=== PATIENT | female | born 1945 | race Caucasian/White ===

== ENCOUNTER 2016-12-06 04:37 | Observation (INO) | payer OTHER ==
[~2016-12-06] VITALS: Ht 157.5 cm; Wt 80.5 kg
[~2016-12-06 04:37] MED LIST: ADVAIR 250/501 DISK IH; ASCORBIC ACID500 M3 PO; ASPIR 8181 M1 PO; COZAAR25 MG PO; DUONEB 2.5-0.5 M3 ML IH; FIBER GUMMIES1 EACH PO; FLONASE16 G1 BOTH NARES; FOLIC ACID1 MG PO; INSULIN PUMP SCCONT; KEFLEX500 MG PO; LANTUS 10100 UNITS/ SC; LANTUS 3 M100 UNITS1 SC; LEVEMIR FL100 UNIT/1 SC; LEXAPRO10 MG PO; LOPRESSOR25 MG PO; LOSARTAN POTASS25 MG PO; LOSARTAN POTASS50 MG PO; METFORMIN HCL500 M1 PO; METFORMIN HCL500 MG PO; NORCO 5/3251 TABLET PO; NOVOLOG PE100 UNITS/ SC; NYSTATIN-TRIAMC15 GM TP; OMEPRAZOLE20 M2 PO; OMEPRAZOLE20 MG PO; PANTOPRAZOLE SO40 MG PO; PRAMIPEXOLE DI0.5 MG PO; PRAVASTATIN SOD20 MG PO; PROTONIX40 MG PO; SANTYL30 GM TP; SENNA-TIME S T1 EACH PO; THERAGRAN1 TABLET PO; TOPROL XL25 MG PO; WOMEN'S DAILY1 EAC4 PO; ZOFRAN4 MG PO
[2016-12-06 06:12] LABS: HEMATOCRIT 35.8 % (36.0-46.0); MCHC 32.4 G/DL (30.0-36.0); MCV 95.7 FL (83-99); MEAN PLAT.VOLUME 11.4 uM^3 (9.5-12.4); PLATELET COUNT 363 K/uL (156-360); RBC DIS.WIDTH-CV 12.1 % (11.8-14.6); RBC DIS.WIDTH-SD 42.4 % (39-53); RED BLOOD COUNT 3.74 M/uL (3.80-5.20); WHITE BLOOD COUNT 9.1 K/uL (4.1-10.2)
[2016-12-06 06:16] LABS: CHLORIDE 104 mEq/L (99-109); POTASSIUM 4.8 mEq/L (3.7-5.4); SODIUM 138 mEq/L (136-147)
[2016-12-06 06:18] LABS: GLUCOSE 305 mg/dL (70-99)
[2016-12-06 06:19] LABS: ANION GAP 12 MEQ/L (2-14)
[2016-12-06 06:20] LABS: TOTAL BILIRUBIN 0.4 mg/dL (0.0-1.0)
[2016-12-06 06:22] LABS: ALKALINE PHOSPHATASE 71 IU/L (3-129); D-DIMER ELISA 0.57 mg/L FEU (< 0.57); GFR ESTIMATE (CALCULATED) 47 mL/min/
[2016-12-06 06:23] LABS: UREA NITROGEN (BUN) 26 mg/dL (9-23)
[2016-12-06 06:25] LABS: LIPASE 5 U/L (1.0-51.0)
[2016-12-06 06:31] LABS: TROP-I INTERPRETATION NEGATIVE; TROPONIN-I < 0.01 ng/mL (0.0-0.30)
[2016-12-06 09:53] VITALS: BP 179/74
[2016-12-06 11:59] LABS: POINT-OF-CARE METER ID UU13113831
[2016-12-06 12:12] VITALS: BP 161/68
[2016-12-06 12:21] LABS: TROP-I INTERPRETATION NEGATIVE; TROPONIN-I < 0.01 ng/mL (0.0-0.30)
[2016-12-06 17:37] LABS: POINT-OF-CARE METER ID UU14162513
[2016-12-06 19:08] LABS: ALKALINE PHOSPHATASE 66 IU/L (3-129); DIRECT BILIRUBIN 0.1 mg/dL (0.0-0.3); TOTAL BILIRUBIN 0.4 MG/DL (0.0-1.0)
[2016-12-06 19:32] LABS: TROP-I INTERPRETATION NEGATIVE; TROPONIN-I 0.02 ng/mL (0.0-0.30)
[2016-12-06 20:27] VITALS: BP 150/64
[2016-12-06] MEDS ORDERED: NOVOLOG 10100 UNITS/ MC (20:44)
[2016-12-06] MEDS ORDERED: VITAMIN D31000 UNI2 PO (20:53)
[2016-12-06] MEDS ORDERED: CYANOCOBALAM1000 MCG PO (20:54)
[2016-12-06] MEDS ORDERED: TYLENOL EXTRA500 MG PO (20:57)
[2016-12-06] MEDS ORDERED: OXYBUTYNIN CHLO10 MG PO (20:58)
[2016-12-06 21:55] LABS: POINT-OF-CARE METER ID UU14162513
[2016-12-07 00:30] VITALS: BP 146/64
[2016-12-07 03:43] VITALS: BP 153/70
[2016-12-07 07:46] LABS: POINT-OF-CARE METER ID UU14162513
[2016-12-07 08:49] VITALS: BP 134/78
[2016-12-07] MEDS ORDERED: POLYETHYLENE GL17 GM PO (10:17)
[2016-12-07] MEDS ORDERED: ADVAIR HFA120 INHALA IH (10:17)
[2016-12-07 12:10] VITALS: BP 148/68
[2016-12-07 12:52] LABS: POINT-OF-CARE METER ID UU14162513; POINT-OF-CARE USER ID PUTHJD81
== END 2016-12-07 16:56 | disposition home or self-care (01) ==
LOC: EME 04:37 → EDOF 08:33 → 5WEST 09:32
PROVIDERS: Emergency Medicine; Hospitalist; Internal Medicine
DX: R07.9 Chest pain, unspecified (principal); R10.13 Epigastric pain; I25.10 Atherosclerotic heart disease of native coronary artery without angina pectoris; I10 Essential (primary) hypertension; E11.65 Type 2 diabetes mellitus with hyperglycemia; D64.9 Anemia, unspecified; F03.90 Unspecified dementia, unspecified severity, without behavioral disturbance, psychotic disturbance, mood disturbance, and anxiety; E66.9 Obesity, unspecified; Z68.32 Body mass index [BMI] 32.0-32.9, adult; I25.2 Old myocardial infarction; Z79.4 Long term (current) use of insulin
CPT/HCPCS: 71020; 74000; 80053; 80076; 82948; 83690; 84484; 85027; 85379; 93005; 94640; 94640 76; 99281; 99285; G0378; J1650; J1815; J7030

== ENCOUNTER 2017-01-02 14:43 | Emergency (ER) | payer OTHER ==
[~2017-01-02] VITALS: Ht 170.2 cm; Wt 73.6 kg
[~2017-01-02 14:43] MED LIST changes: +ADVAIR HFA120 INHALA IH; +CYANOCOBALAM1000 MCG PO; +NOVOLOG 10100 UNITS/ MC; +OXYBUTYNIN CHLO10 MG PO; +POLYETHYLENE GL17 GM PO; +TYLENOL EXTRA500 MG PO; +VITAMIN D31000 UNI2 PO
[2017-01-02 19:31] VITALS: BP 154/49
== END 2017-01-02 19:33 | disposition home or self-care (01) ==
LOC: EME 14:43
DX: H43.812 Vitreous degeneration, left eye (principal); J45.909 Unspecified asthma, uncomplicated; E11.9 Type 2 diabetes mellitus without complications; I10 Essential (primary) hypertension; I25.2 Old myocardial infarction; K21.9 Gastro-esophageal reflux disease without esophagitis; F03.90 Unspecified dementia, unspecified severity, without behavioral disturbance, psychotic disturbance, mood disturbance, and anxiety; G20 Parkinson's disease; Z96.41 Presence of insulin pump (external) (internal); Z79.4 Long term (current) use of insulin; Z79.82 Long term (current) use of aspirin; Z87.891 Personal history of nicotine dependence
CPT/HCPCS: 99281; 99284

== ENCOUNTER 2017-03-04 15:12 | Inpatient (IN) | payer OTHER ==
[~2017-03-04] VITALS: Ht 167.6 cm; Wt 65.9 kg
[~2017-03-04 15:12] MED LIST changes: +DONEPEZIL HCL10 MG PO; +HUMALOG100 UNIT/2 SC; +ONDANSETRON HCL4 MG PO
[2017-03-04 15:57] LABS: BASOPHIL COUNT 0.1 K/uL (0-0.1); EOSINOPHIL (%) 0.4 % (0-5); HEMATOCRIT 39.3 % (36.0-46.0); IMMATURE GRANULOCYTE (%) 0.4 % (0.0-0.7); INSTRUMENT ABS NEUTROPHIL CT 4.7 K/uL; LYMPHOCYTE COUNT 1.9 K/uL (1.0-2.8); MCHC 32.8 G/DL (30.0-36.0); MCV 97.5 FL (83-99); MEAN PLAT.VOLUME 11.3 uM^3 (9.5-12.4); MONOCYTE COUNT 0.5 K/uL (0-0.8); NEUTROPHIL (%) 64.7 % (45-76); NEUTROPHIL COUNT 4.7 K/uL (1.8-6.4); PLATELET COUNT 287 K/uL (156-360); RBC DIS.WIDTH-CV 12.4 % (11.8-14.6); RBC DIS.WIDTH-SD 44.7 % (39-53); RED BLOOD COUNT 4.03 M/uL (3.80-5.20); WHITE BLOOD COUNT 7.2 K/uL (4.1-10.2)
[2017-03-04 16:18] LABS: TROP-I INTERPRETATION NEGATIVE; TROPONIN-I 0.02 ng/mL (0.0-0.30)
[2017-03-04 16:58] LABS: ANION GAP 20 MEQ/L (2-14); CHLORIDE 97 MEQ/L (99-109); POTASSIUM 4.3 MEQ/L (3.7-5.4); SAMPLE HEMOLYSIS CHECK 0; SAMPLE ICTERIC CHECK 0; SAMPLE LIPEMIA CHECK 0; SODIUM 134 MEQ/L (136-147); TOTAL BILIRUBIN 0.8 MG/DL (0.0-1.0)
[2017-03-04 17:07] LABS: ALKALINE PHOSPHATASE 58 IU/L (3-129); GFR ESTIMATE (CALCULATED) 47 mL/min/; GLUCOSE 592 mg/dL (70-99); UREA NITROGEN (BUN) 30 mg/dL (9-23)
[2017-03-04 18:05] LABS: ADD MIUA? NO; BILIRUBIN NEGATIVE; BLOOD NEGATIVE; COLOR YELLOW ((YELLOW)); GLUCOSE (STRIP) >=500; KETONES 20; LEUKOCYTES NEGATIVE; NITRITE NEGATIVE; PROTEIN (STRIP) NEGATIVE; SPECIFIC GRAVITY 1.027 (1.000-1.030); UCUL ADDED? NO; UROBILINOGEN 0.2 MG/DL (0.2-1.0)
[2017-03-04 18:53] LABS: POINT-OF-CARE METER ID UU14100415
[2017-03-04 19:58] LABS: CHLORIDE 110 mEq/L (99-109)
[2017-03-04 20:00] LABS: SODIUM 141 mEq/L (136-147)
[2017-03-04 20:01] LABS: ANION GAP 12 MEQ/L (2-14); GLUCOSE 224 mg/dL (70-99)
[2017-03-04 20:04] LABS: GFR ESTIMATE (CALCULATED) 47 mL/min/
[2017-03-04 20:05] LABS: UREA NITROGEN (BUN) 27 mg/dL (9-23)
[2017-03-05 08:29] LABS: POINT-OF-CARE METER ID UU14100415
[2017-03-05 15:01] LABS: POINT-OF-CARE METER ID UU14100415
[2017-03-05 17:34] LABS: POINT-OF-CARE METER ID UU14100415
[2017-03-05] MEDS ORDERED: ARICEPT10 MG PO (18:52)
[2017-03-05 20:19] VITALS: BP 110/53
[2017-03-05 20:23] VITALS: BP 110/53
[2017-03-06 06:12] LABS: POINT-OF-CARE METER ID UU13113830
[2017-03-06 07:46] VITALS: BP 128/65
[2017-03-06 12:29] LABS: POINT-OF-CARE METER ID UU13113830
[2017-03-06 15:28] VITALS: BP 132/61
[2017-03-06 17:44] LABS: POINT-OF-CARE METER ID UU13113830
[2017-03-06 20:59] LABS: POINT-OF-CARE METER ID UU13113830; POINT-OF-CARE USER ID BHSSMG
[2017-03-07 06:10] LABS: POINT-OF-CARE METER ID UU13113830; POINT-OF-CARE USER ID BHSMEW
[2017-03-07 07:59] VITALS: BP 139/65
[2017-03-07 15:17] VITALS: BP 120/78
[2017-03-07 17:06] LABS: POINT-OF-CARE METER ID UU13113830
[2017-03-07 20:44] LABS: POINT-OF-CARE METER ID UU13113830; POINT-OF-CARE USER ID BHSSMG
[2017-03-08 06:13] LABS: POINT-OF-CARE METER ID UU13113830; POINT-OF-CARE USER ID BHSMEW
[2017-03-08 07:41] VITALS: BP 198/77
[2017-03-08 07:53] VITALS: BP 148/65
[2017-03-08 08:27] LABS: ANION GAP 9 MEQ/L (2-14); CHLORIDE 104 MEQ/L (99-109); GFR ESTIMATE (CALCULATED) > 59 mL/min/; GLUCOSE 209 mg/dL (70-99); POTASSIUM 3.9 MEQ/L (3.7-5.4); SAMPLE HEMOLYSIS CHECK 0; SAMPLE ICTERIC CHECK 0; SAMPLE LIPEMIA CHECK 0; SODIUM 138 MEQ/L (136-147); UREA NITROGEN (BUN) 16 mg/dL (9-23)
[2017-03-08 15:30] VITALS: BP 127/59
[2017-03-08 17:19] LABS: POINT-OF-CARE METER ID UU13113830
[2017-03-08 20:50] LABS: POINT-OF-CARE METER ID UU13113830; POINT-OF-CARE USER ID BHSSMG
[2017-03-09 06:01] LABS: POINT-OF-CARE METER ID UU13113830
[2017-03-09 07:47] VITALS: BP 102/62
[2017-03-09] MEDS ORDERED: LEVEMIR100 UNIT/2 SC (10:21)
[2017-03-09] MEDS ORDERED: NOVOLOG PE100 UNITS/ SC (10:21)
[2017-03-09] MEDS ORDERED: TRAZODONE HCL50 MG PO (10:21)
[2017-03-09 11:36] LABS: POINT-OF-CARE METER ID UU13113830; POINT-OF-CARE USER ID BHSLRM
[2017-03-09 11:49] LABS: POINT-OF-CARE METER ID UU13113830
[2017-03-09 12:04] LABS: POINT-OF-CARE METER ID UU13113830
[2017-03-09 13:14] LABS: POINT-OF-CARE METER ID UU13113830; POINT-OF-CARE USER ID BHSLRM
[2017-03-09 15:37] VITALS: BP 105/53
[2017-03-09 16:58] LABS: POINT-OF-CARE METER ID UU13113830; POINT-OF-CARE USER ID BHSLRM
[2017-03-09 17:14] LABS: POINT-OF-CARE METER ID UU13113830; POINT-OF-CARE USER ID BHSLRM
[2017-03-09 17:45] LABS: POINT-OF-CARE METER ID UU13113830; POINT-OF-CARE USER ID BHSLRM
[2017-03-09 20:57] LABS: POINT-OF-CARE METER ID UU13113830; POINT-OF-CARE USER ID BHSMEW
[2017-03-10 06:11] LABS: POINT-OF-CARE METER ID UU13113830
[2017-03-10 07:24] VITALS: BP 97/63
[2017-03-10 11:41] LABS: POINT-OF-CARE METER ID UU13113830; POINT-OF-CARE USER ID BHSLRM
[2017-03-10 15:36] VITALS: BP 117/69
[2017-03-10 16:43] LABS: POINT-OF-CARE METER ID UU13113830; POINT-OF-CARE USER ID BHSLRM
[2017-03-10 20:55] LABS: POINT-OF-CARE METER ID UU13113830; POINT-OF-CARE USER ID BHSSMG
[2017-03-11 06:10] LABS: POINT-OF-CARE METER ID UU13113830; POINT-OF-CARE USER ID BHSSMG
[2017-03-11 07:51] VITALS: BP 123/67
[2017-03-12 09:37] LABS: POINT-OF-CARE METER ID UU13113830; POINT-OF-CARE USER ID BHSTSA
== END 2017-03-11 15:51 | DRG 885 ==
LOC: EME 15:12 → 1WEST 03-05 18:20 → EDOF 03-05 18:20 → 1WEST 03-05 20:18
PROVIDERS: Emergency Medicine; Internal Medicine; Psychiatry & Neurology Psychiatry
DX: F33.3 Major depressive disorder, recurrent, severe with psychotic symptoms (principal); G20 Parkinson's disease; F02.81 Dementia in other diseases classified elsewhere, unspecified severity, with behavioral disturbance; G30.9 Alzheimer's disease, unspecified; E11.65 Type 2 diabetes mellitus with hyperglycemia; E86.0 Dehydration; F41.9 Anxiety disorder, unspecified; I10 Essential (primary) hypertension; I25.2 Old myocardial infarction; J45.909 Unspecified asthma, uncomplicated; K21.9 Gastro-esophageal reflux disease without esophagitis; Z79.4 Long term (current) use of insulin; Z79.899 Other long term (current) drug therapy; Z87.891 Personal history of nicotine dependence; Z96.41 Presence of insulin pump (external) (internal)
CPT/HCPCS: 71010; 80048; 80048 91; 80053; 81003; 82010; 82803; 82948; 84484; 85025; 90837; 90839; 93005; 97150 GO; 97165 GO; 99281; 99285; J1630; J1815; J2060; J7030